=== PATIENT | male | born 2000 | race Asian ===

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

== ENCOUNTER 2021-07-01 17:44 | Emergency (ER) | payer OTHER ==
[~2021-07-01] VITALS: Ht 154.9 cm; Wt 104.5 kg
[~2021-07-01 17:44] MED LIST changes: +HYDR-4031 PO; -HYDR25TA PO; +HYDR25TA2 PO; +INDO-16 PO; -INDO25 PO; +VENL25TA47 PO
[2021-07-01 18:33] VITALS: BP 120/84
[2021-07-01 18:54] LABS: COVID AG,FIA SOURCE NASAL SWAB
== END 2021-07-01 21:14 | disposition home or self-care (01) ==
LOC: EMS 19:24
DX: U07.1 COVID-19 (principal); Z79.899 Other long term (current) drug therapy
CPT/HCPCS: 87426; 99283; C9803